=== PATIENT | male | born 1985 | race American Indian/Alaskan Native ===

== ENCOUNTER 2017-07-06 23:15 | Emergency (ER) | payer OTHER | END 2017-07-07 00:11 | LOC: DL.ED 23:15 | DX: Z53.21 Procedure and treatment not carried out due to patient leaving prior to being seen by health care provider (principal) | CPT/HCPCS: 99284 ==

== ENCOUNTER 2017-10-02 18:30 | Emergency (ER) | payer OTHER ==
[2017-10-02 19:29] VITALS: BP 122/72
[2017-10-02] MEDS ORDERED: Lidocaine 1% 30 ML SDV INJECT ONE (19:56)
[2017-10-02] MEDS ORDERED: Sulfamethoxazole/Trimethoprim 800-160 MG Tab PO ONE (19:57)
[2017-10-02] MEDS ORDERED: Cephalexin 500 MG Cap PO ONE (19:57)
--- NOTE | 2017-10-02 20:02 | EDM.PDOC ---
ED HPI GENERAL MEDICAL PROBLEM - General Chief Complaint: Skin Complaint Stated Complaint: BUTT PROBLEMS, NO PHONE Time Seen by Provider: 10/02/17 19:50 Source of Information: Reports: Patient History Limitations: Reports: No Limitations - History of Present Illness INITIAL COMMENTS - FREE TEXT/NARRATIVE: This 31 yo male patient reports to the ED with an abscess to his right buttock. The patient reports he has been having increased pain over the past couple of days. The patient reports he did not have a ride to the Clinic today to be seen for this. The patient has had a similar abscess in the past and was advised that he had MRSA. Onset: Gradual Duration: Day(s): (2), Constant, Getting Worse Location: Reports: Lower Extremity, Right Quality: Reports: Ache, Sharp Severity: Severe Improves with: Reports: None Worsens with: Reports: None Context: Reports: Activity Associated Symptoms: Reports: No Other Symptoms Treatments GENERATION ENGINEERING TECHNOLOGIST: Reports: Other (see below) Other Treatments GENERATION ENGINEERING TECHNOLOGIST: none Right Pain Score (Numeric/FACES): 7 - Related Data Allergies Allergy/AdvReac Type Severity Reaction Status Date / Time No Known Allergies Allergy Verified 10/02/17 19:31 Home Meds: Home Meds . [No Known Home Meds] 03/21/16 [History] Past Medical History - Past Health History Medical/Surgical History: Denies Medical/Surgical History HEENT History: Reports: Impaired Vision Other HEENT History: wears corrective lenses Cardiovascular History: Reports: None Respiratory History: Reports: None Gastrointestinal History: Reports: None Genitourinary History: Reports: None Musculoskeletal History: Reports: Fracture Other Musculoskeletal History: Right femur fx 2004. right elbow fx 2004 Neurological History: Reports: None Psychiatric History: Reports: None Endocrine/Metabolic History: Reports: None Hematologic History: Reports: None Immunologic History: Reports: None Oncologic (Cancer) History: Reports: None Dermatologic History: Reports: None - Infectious Disease History Infectious Disease History: Reports: MRSA - Past Surgical History Musculoskeletal Surgical History: Reports: ORIF Social & Family History - Family History Family Medical History: Noncontributory - Tobacco Use Smoking Status *Q: Current Every Day Smoker Years of Tobacco use: 12 Packs/Tins Daily: 0.2 Used Tobacco, but Quit: No Second Hand Smoke Exposure: Yes - Caffeine Use Caffeine Use: Reports: Coffee, Energy Drinks, Soda, Tea - Alcohol Use Days Per Week of Alcohol Use: 3 Number of Drinks Per Day: 3 Total Drinks Per Week: 9 - Recreational Drug Use Recreational Drug Use: Yes Drug Use in Last 12 Months: Yes Recreational Drug Type: Reports: Marijuana/Hashish ED ROS GENERAL - Review of Systems Review Of Systems: ROS reveals no pertinent complaints other than HPI. ED EXAM, SKIN/RASH Exam: See Below Exam Limited By: No Limitations General Appearance: Alert, WD/WN, Moderate Distress, Thin Eye Exam: Bilateral Eye: EOMI, Normal Inspection, PERRL Ears: Normal External Exam, Normal Canal, Hearing Grossly Normal, Normal TMs Nose: Normal Inspection, Normal Mucosa, No Blood Throat/Mouth: Normal Inspection, Normal Lips, Normal Teeth, Normal Gums, Normal Oropharynx, Normal Voice, No Airway Compromise Head: Atraumatic, Normocephalic Neck: Normal Inspection, Supple, Non-Tender, Full Range of Motion Respiratory/Chest: No Respiratory Distress, Lungs Clear, Normal Breath Sounds, No Accessory Muscle Use, Chest Non-Tender Cardiovascular: Normal Peripheral Pulses, Regular Rate, Rhythm, No Edema, No Gallop, No JVD, No Murmur, No Rub GI/Abdominal: Normal Bowel Sounds, Soft, Non-Tender, No Organomegaly, No Distention, No Abnormal Bruit, No Mass (Male) Exam: Deferred Rectal (Males) Exam: Deferred Back Exam: Normal Inspection, Full Range of Motion, NT Extremities: Increased Warmth Neurological: Alert, Oriented, CN II-XII Intact, Normal Cognition, Normal Gait, Normal Reflexes, No Motor/Sensory Deficits Psychiatric: Normal Affect, Normal Mood Skin: Warm, Erythema, Increased Warmth Location, Skin: Lower Extremity, Right Characteristics: Erythematous Associated features: Warmth, Tenderness, Swelling, Induration, Inflammation Lymphatic: No Adenopathy ED SKIN PROCEDURES - I&D Site: Right buttocks Skin Prep: Providone-Iodine (Betadine), Isopropyl Alcohol (Alcohol) Local Anesthesia: Lidocaine: 1% Plain Local Anesthetic Volume: 5cc Area Incised With: Other (10 blade) Drainage: Purulent, Bloody, Moderate Amount Probed to Break Up Loculations: Yes Packed With: None Sterile Dressing: Adhesive Dressing, 4x4(s) Complications: No Course - Vital Signs Last Recorded V/S: Last Vital Signs Temp 36.7 C 10/02/17 19:24 Pulse 997 H 10/02/17 19:24 Resp 20 10/02/17 19:24 BP 122/72 10/02/17 19:24 Pulse Ox 97 10/02/17 19:24 - Orders/Labs/Meds Meds: Medications Discontinued Medications Generic Name Dose Route Start Last Admin Trade Name Adenike PRN Reason Stop Dose Admin Hydrocodone Bitart/Acetaminophen 1 tab 10/02/17 20:14 Bristol 325-10 Mg PO 10/02/17 20:15 ONETIME ONE Cephalexin 500 mg 10/02/17 19:57 10/02/17 20:04 Keflex PO 10/02/17 19:58 500 mg ONETIME ONE Administration Lidocaine HCl 30 ml 10/02/17 19:56 10/02/17 20:04 Xylocaine-Mpf 1% INJECT 10/02/17 19:57 5 ml ONETIME ONE Administration Trimethoprim/Sulfamethoxazole 1 tab 10/02/17 19:57 10/02/17 20:04 Septra Ds PO 10/02/17 19:58 1 tab ONETIME ONE Administration Departure - Departure Time of Disposition: 20:17 Disposition: Home, Self-Care 01 Condition: Fair Clinical Impression: Abscess of right buttock - Discharge Information Instructions: Abscess, [id number] Forms: ED Department Discharge Care Plan Goals: The patient was advised of the examination results during the visit. The abscess was incised and drained during the visit. The patient was given an oral dose of Keflex, Bactrim DS and Bristol while in the ED. The patient was discharged with a script for Keflex (500 mg) #30 to take 1 by mouth 3 times per day for 10 days and Bactrim DS #20 to take 1 by mouth 2 times per day for 10 days. If the patient has any additional symptoms or concerns, the patient should follow-up with his primary care facility or return to the emergency department.
[2017-10-02] MEDS ORDERED: Acetaminophen/HYDROcodone 325-10 MG Tab PO ONE (20:14)
== END 2017-10-02 20:25 | disposition home or self-care (01) ==
LOC: DL.ED 18:30
DX: L02.31 Cutaneous abscess of buttock (principal); F17.210 Nicotine dependence, cigarettes, uncomplicated
CPT/HCPCS: 10060; 87070; 87077; 87186; 99283; A9270

== ENCOUNTER 2017-10-15 02:17 | Emergency (ER) | payer SELFPAY ==
[2017-10-15 02:28] VITALS: BP 134/84
[2017-10-15] MEDS ORDERED: traMADol 50 MG Tab PO ONE (02:32)
[2017-10-15] MEDS ORDERED: Clindamycin HCl 150 MG Cap PO ONE (02:32)
--- NOTE | 2017-10-15 02:37 | EDM.PDOC ---
ED HPI GENERAL MEDICAL PROBLEM - General Chief Complaint: Skin Complaint Stated Complaint: BOIL? NO PHONE Time Seen by Provider: 10/15/17 02:33 Source of Information: Reports: Patient History Limitations: Reports: No Limitations - History of Present Illness INITIAL COMMENTS - FREE TEXT/NARRATIVE: boil on buttocks x 2 weeks was here Tx with ABX but unable to finish misplaced it. Right Middle Rectal Pain Score (Numeric/FACES): 6 - Related Data Allergies Allergy/AdvReac Type Severity Reaction Status Date / Time No Known Allergies Allergy Verified 10/15/17 02:29 Home Meds: Home Meds . [No Known Home Meds] 03/21/16 [History] Past Medical History - Past Health History Medical/Surgical History: Denies Medical/Surgical History HEENT History: Reports: Impaired Vision Other HEENT History: wears corrective lenses Cardiovascular History: Reports: None Respiratory History: Reports: None Gastrointestinal History: Reports: None Genitourinary History: Reports: None Musculoskeletal History: Reports: Fracture Other Musculoskeletal History: Right femur fx 2004. right elbow fx 2004 Neurological History: Reports: None Psychiatric History: Reports: None Endocrine/Metabolic History: Reports: None Hematologic History: Reports: None Immunologic History: Reports: None Oncologic (Cancer) History: Reports: None Dermatologic History: Reports: None - Infectious Disease History Infectious Disease History: Reports: MRSA - Past Surgical History Musculoskeletal Surgical History: Reports: ORIF Social & Family History - Family History Family Medical History: Noncontributory - Tobacco Use Smoking Status *Q: Current Every Day Smoker Years of Tobacco use: 14 Packs/Tins Daily: 4 Used Tobacco, but Quit: No Second Hand Smoke Exposure: Yes - Caffeine Use Caffeine Use: Reports: Coffee - Alcohol Use Days Per Week of Alcohol Use: 3 Number of Drinks Per Day: 3 Total Drinks Per Week: 9 - Recreational Drug Use Recreational Drug Use: No Drug Use in Last 12 Months: Yes Recreational Drug Type: Reports: Marijuana/Hashish ED ROS GENERAL - Review of Systems Review Of Systems: ROS reveals no pertinent complaints other than HPI. ED EXAM, SKIN/RASH Exam: See Below Exam Limited By: No Limitations General Appearance: Alert, WD/WN, Mild Distress, Moderate Distress, Other ( tearful) Ears: Hearing Grossly Normal Throat/Mouth: Normal Voice, No Airway Compromise Head: Atraumatic Neck: Non-Tender, Full Range of Motion Respiratory/Chest: No Respiratory Distress Cardiovascular: Regular Rate, Rhythm GI/Abdominal: Soft, Non-Tender Extremities: Other (left buttocks firm non fluctuant abscess local erythema without lymphangitis) Neurological: Alert, Oriented, Normal Cognition, Normal Gait, No Motor/Sensory Deficits Psychiatric: Tearful Skin: Warm, Dry, Normal Color Location, Skin: Other (buttock) Associated features: Tenderness, Swelling, Inflammation, Weeping. No: Scaling, Lymphangitis Lymphatic: No Adenopathy Course - Vital Signs Last Recorded V/S: Last Vital Signs Temp 36.6 C 10/15/17 02:20 Pulse 116 H 10/15/17 02:20 Resp 17 10/15/17 02:20 BP 134/84 10/15/17 02:20 Pulse Ox 100 10/15/17 02:20 - Orders/Labs/Meds Orders: Active Orders 24 hr Category Date Time Status CULTURE WOUND [RM] Stat Lab 10/15/17 02:27 Ordered Clindamycin HCl [Cleocin] Med 10/15/17 02:32 Once 300 mg PO ONETIME ONE traMADol [Ultram] Med 10/15/17 02:32 Once 50 mg PO ONETIME ONE Departure - Departure Time of Disposition: 02:35 Disposition: Home, Self-Care 01 Condition: Good Clinical Impression: Abscess - Discharge Information Instructions: Abscess, [id number] Additional Instructions: 1) use hot compress to area 2) keep area clean dry covered 3) follow up at clinic rx given; clindamycin 150mg qid x 40 tramadol 50mg bid prn x 12 - My Orders Last 24 Hours: My Active Orders 10/15/17 02:27 CULTURE WOUND [RM] Stat 10/15/17 02:32 Clindamycin HCl [Cleocin] 300 mg PO ONETIME ONE traMADol [Ultram] 50 mg PO ONETIME ONE - Assessment/Plan Last 24 Hours: My Active Orders 10/15/17 02:27 CULTURE WOUND [RM] Stat 10/15/17 02:32 Clindamycin HCl [Cleocin] 300 mg PO ONETIME ONE traMADol [Ultram] 50 mg PO ONETIME ONE
== END 2017-10-15 02:44 | disposition home or self-care (01) ==
LOC: DL.ED 02:17 → EEVIPCON 02:17 → DL.ED 02:44
DX: L02.31 Cutaneous abscess of buttock (principal); F17.210 Nicotine dependence, cigarettes, uncomplicated
CPT/HCPCS: 87070; 99283; A9270; 87077; 87186